=== PATIENT | female | born 1960 | race Caucasian/White ===

== ENCOUNTER 2019-03-24 17:39 | Emergency (ER) | payer MEDICAID ==
[~2019-03-24] VITALS: Ht 165.1 cm; Wt 64.3 kg
[~2019-03-24 17:39] MED LIST: BLOOD PRESSURE MED PO; HIGH CHOLESTEROL MED PO; IRON18TA PO; NAPR-985 PO; PAIN MEDICATION PO; PHEN177S43 MT
[2019-03-24 17:57] VITALS: Ht 165.1 cm; Wt 64.3 kg
[2019-03-24] MEDS ORDERED: ONDANSETRON 4 MG INJ IV STA (18:32)
[2019-03-24] MEDS ORDERED: morphine 4 MG/ML VIAL IV STA (18:32)
[2019-03-24] MEDS ORDERED: SOD CHLORIDE 0.9% 1,000 ML IV STA (18:32)
[2019-03-24 20:40] VITALS: BP 168/81; PULSE 72; RESP 18
== END 2019-03-24 20:47 | disposition home or self-care (01) ==
LOC: FTE 17:39
DX: J02.9 Acute pharyngitis, unspecified (principal); F17.210 Nicotine dependence, cigarettes, uncomplicated
CPT/HCPCS: 36415; 70490; 71250; 80053; 81001; 83690; 85025; 85610; 85730; 96361; 96374; 96375; J2270; J2405; J7030; Z7502